=== PATIENT | male | born 1940 | race Caucasian/White ===

== ENCOUNTER 2017-10-18 09:29 | Day surgery (SDC) | payer MEDICARE, OTHER ==
[~2017-10-18] VITALS: Ht 177.8 cm; Wt 126.8 kg
[~2017-10-18 09:29] MED LIST: ATOR40TA PO; CARV6.25 PO; VALS80 PO; WARF5 PO
[2017-10-18 10:23] LABS: Hematocrit 44.2 % (37.0-53.0); Hemoglobin 14.5 g/dL (13.5-17.5); Mean Corpuscular HGB 31.2 pg (26.0-34.0); Mean Corpuscular HGB Conc 32.8 g/dL (31.5-36.5); Mean Corpuscular Volume 95 fL (80-100); Mean Platelet Volume 9.7 fL (9.1-12.4); Platelet Count 262 K/mm3 (150-400); RDW Coefficient Variation 16.4 % (11.7-14.2); RDW Standard Deviation 57.6 fL (35.1-46.3); Red Blood Cell Count 4.65 M/mm3 (4.30-5.90); White Blood Cell Count 7.54 K/mm3 (4.00-11.30)
[2017-10-18 10:36] LABS: International Normalized Ratio 1.4; Prothrombin Time Results 14.7 Sec (9.7-11.5)
[2017-10-18 12:16] LABS: Anion Gap 5 mmol/L (6-16); Blood Urea Nitrogen 19 mg/dL (8-24); Bun/Creatinine Ratio 16.2 (12.0-20.0); CO2, Blood 31 mmol/L (21-32); Calcium, Blood 8.9 mg/dL (8.5-10.1); Chloride, Blood 105 mmol/L (98-108); Creatinine, Blood 1.17 mg/dL (0.60-1.20); Glomerular Filtration Rate >60 (60-); Glucose, Blood 102 mg/dL (70-99); Potassium, Blood 3.4 mmol/L (3.5-5.5); Sodium, Blood 141 mmol/L (136-145)
[2017-10-19 04:07] LABS: International Normalized Ratio 1.31; Prothrombin Time Results 13.7 Sec (9.7-11.5)
== END 2017-10-19 10:01 | disposition home or self-care (01) ==
LOC: MHTC 09:29 → PCU 14:33 → MHTC 17:45 → PCU 10-19 10:01 → MHTC 10-19 10:01
PROVIDERS: Internal Medicine Interventional Cardiology
PROC: B213YZZ Fluoroscopy of Multiple Coronary Artery Bypass Grafts using Other Contrast (ICD-10-PCS; principal; 2017-10-18)
PROC: B211YZZ Fluoroscopy of Multiple Coronary Arteries using Other Contrast (ICD-10-PCS; principal; 2017-10-18)
PROC: B218YZZ Fluoroscopy of Left Internal Mammary Bypass Graft using Other Contrast (ICD-10-PCS; principal; 2017-10-18)
DX: I25.10 Atherosclerotic heart disease of native coronary artery without angina pectoris (principal); R94.39 Abnormal result of other cardiovascular function study; R53.83 Other fatigue; R06.02 Shortness of breath; Z95.1 Presence of aortocoronary bypass graft; E66.9 Obesity, unspecified; Z87.891 Personal history of nicotine dependence; E78.00 Pure hypercholesterolemia, unspecified; I10 Essential (primary) hypertension; E78.5 Hyperlipidemia, unspecified; Z79.01 Long term (current) use of anticoagulants; I48.2 Chronic atrial fibrillation; G47.33 Obstructive sleep apnea (adult) (pediatric)
CPT/HCPCS: 36415; 80048; 85027; 85610; 93005; 93010; 93459; 99152; C1769; J1644; J2250; J3010; J7030; Q9967